=== PATIENT | male | born 1950 | race Hispanic/Latino ===

== ENCOUNTER 2021-06-12 20:45 | Emergency (ER) | payer MEDICARE ==
[2021-06-12 20:56] VITALS: BP 124/73
--- NOTE | 2021-06-12 21:05 | Emergency Department Report ---
ED General Adult HPI - General Chief complaint: Skin Rash Stated complaint: RASH ON GROIN AREA PUI?: No Source: patient Mode of arrival: Ambulatory Limitations: No Limitations - History of Present Illness Initial comments: Patient is a 70-year-old male with a history of chronic recurrent bilateral inguinal hernia who presents to the ED with complaint of acute onset persistent itchy erythematous maculopapular rash on right inguinal area for the last 4 days. Patient states that the itching has worsened in the last 8 hours. Patient denies fever and chills, nausea and vomiting, testicular pain, dysuria, urinary frequency and urgency, low back pain or traumatic injury. MD Complaint: Itchy erythematous painful rash on right inguinal area -: Sudden, days(s) (4) Location: genitals (right inguinal area) Radiation: non-radiation Severity scale (0 -10): 4 Quality: burning, other (itchy) Consistency: constant Improves with: none Worsens with: none Associated Symptoms: denies other symptoms, rash (Itchy erythematous maculopapular rashes on right inguinal area). denies: confusion, chest pain, cough, diaphoresis, headaches, loss of appetite, malaise, seizure, shortness of breath, syncope, other Treatments Prior to Arrival: none - Related Data Previous Rx's Medication Instructions Recorded Last Taken Type Nystatin Oint [Mycostatin Oint] 1 applicatio TP TID #1 tube 06/12/21 Unknown Rx ED Review of Systems ROS: Stated complaint: RASH ON GROIN AREA Other details as noted in HPI Constitutional: denies: chills, fever Eyes: denies: eye pain, eye discharge, vision change ENT: denies: ear pain, throat pain Respiratory: denies: cough, shortness of breath, wheezing Cardiovascular: denies: chest pain, palpitations Endocrine: no symptoms reported Gastrointestinal: denies: abdominal pain, nausea, diarrhea Genitourinary: denies: urgency, dysuria Musculoskeletal: denies: back pain, joint swelling, arthralgia Skin: rash (Diffuse erythematous maculopapular itchy rash in the right inguinal area), change in color, pruritus. denies: lesions Neurological: denies: headache, weakness, paresthesias Psychiatric: denies: anxiety, depression Hematological/Lymphatic: denies: easy bleeding, easy bruising ED Past Medical Hx - Past Medical History Previous Medical History?: Yes Additional medical history: CARDIAC ARRTHY. SCROTAL HERNIA - Surgical History Past Surgical History?: Yes Additional Surgical History: ABDOMINAL - Social History Smoking Status: Never Smoker Substance Use Type: None - Medications Home Medications: Home Medications Medication Instructions Recorded Confirmed Last Taken Type Nystatin Oint [Mycostatin Oint] 1 applicatio TP TID #1 tube 06/12/21 Unknown Rx ED Physical Exam - General Limitations: No Limitations General appearance: alert, in no apparent distress - Head Head exam: Present: atraumatic, normocephalic, normal inspection - Eye Eye exam: Present: normal appearance, PERRL, EOMI Pupils: Present: normal accommodation - ENT ENT exam: Present: normal exam, normal orophraynx, mucous membranes moist, TM's normal bilaterally, normal external ear exam - Neck Neck exam: Present: normal inspection, full ROM - Respiratory Respiratory exam: Present: normal lung sounds bilaterally. Absent: respiratory distress, wheezes, rales, rhonchi, chest wall tenderness, accessory muscle use, decreased breath sounds - Cardiovascular Cardiovascular Exam: Present: normal rhythm, tachycardia, normal heart sounds. Absent: systolic murmur, diastolic murmur, rubs, gallop - GI/Abdominal GI/Abdominal exam: Present: soft, normal bowel sounds. Absent: tenderness, guarding, rebound, hyperactive bowel sounds, hypoactive bowel sounds, organomegaly - exam: Present: scrotal swelling (Large bilateral nontender scrotal and inguin al hernias), other (Erythematous maculopapular rashes on right inguinal area). 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 Absent: tenderness, CVA tenderness (R), CVA tenderness (L), muscle spasm, paraspinal tenderness, vertebral tenderness - Neurological Exam Neurological exam: Present: alert, oriented X3, CN II-XII intact, normal gait, reflexes normal - Psychiatric Psychiatric exam: Present: normal affect, normal mood - Skin Skin exam: Present: warm, dry, intact, normal color, rash (Erythematous maculopapular rashes on right inguinal area), erythema ED Course Vital Signs 06/12/21 06/12/21 06/12/21 20:49 21:01 21:17 Temperature 97.6 F Pulse Rate 113 H 100 H 94 H Respiratory 18 97 H Rate Blood Pressure 124/73 O2 Sat by Pulse 98 Oximetry ED Medical Decision Making - Medical Decision Making This is a 70-year-old male with a history of chronic recurrent bilateral inguinal hernia who presents to the ED with complaint of acute onset persistent itchy erythematous maculopapular rash on right inguinal area for the last 4 days. Patient states that the itching has worsened in the last 8 hours. In the ED, patient is alert and oriented x3 and is not in any distress. Patient is however anxious and tachycardic in triage but afebrile. Based on the history and physical exam findings, the patient's itchy rash is in the right inguinal area is consistent with tinea cruris. Patient was therefore discharged home on antifungal ointment prescription and advised to follow-up with his primary care physician in 7 to 10 days for reevaluation or return to the ED immediately if symptoms get worse. - Differential Diagnosis Tinea cruris; cellulitis; allergic reaction Critical care attestation.: If time is entered above; I have spent that time in minutes in the direct care of this critically ill patient, excluding procedure time. ED Disposition Clinical Impression: Tinea cruris, Itching with irritation Inguinal hernia recurrent bilateral Qualifiers: Obstruction and gangrene presence: without obstruction or gangrene Qualified Code(s): K40.21 - Bilateral inguinal hernia, without obstruction or gangrene, recurrent Disposition: 01 HOME / SELF CARE / HOMELESS Is pt being admited?: No Does the pt Need Aspirin: No Condition: Stable Instructions: Inguinal Hernia, Adult, [id number], Jock Itch, [id number] Additional Instructions: Apply the medication to the affected area as advised, drink plenty fluids, follow-up with your primary care physician and the general surgeon as advised. Return to the ED immediately if symptoms get worse. Prescriptions: Nystatin Oint [Mycostatin Oint] 1 applicatio TP TID #1 tube Referrals: [facility] [Provider Group] - 3-5 Days MARCE YOO MD [Staff Physician] - 7-10 days Time of Disposition: 21:07 Print Language: CROATIAN
== END 2021-06-12 21:19 | disposition home or self-care (01) ==
LOC: ED 20:45
DX: B35.6 Tinea cruris (principal); K40.21 Bilateral inguinal hernia, without obstruction or gangrene, recurrent; Z79.899 Other long term (current) drug therapy
CPT/HCPCS: 99282

== ENCOUNTER 2021-11-03 10:26 | Emergency (ER) | payer MEDICARE ==
--- NOTE | 2021-11-03 15:01 | Event Note ---
ED Screening Note ED Screening Note: Patient came in an ambulance stating that he had not peed for several days and that night he went to an [facility] and was supposed to follow-up with urology but did not. When I interviewed him he said that he came because his neck was sore. Then he stated that it was better now. 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 Then the patient started talking abou the [employer] and pointed to his ears and said that they were telling him things. He reports he is since the 80s. And he states that he lives alone. He will not divulge much information beyond that. [facility] a [facility] ar[facility] on. No [facility] armband. I have asked the nurse to place an armband. Patient seems to be having auditory hallucinations. Denies SI HI This initial assessment/diagnostic orders/clinical plan/treatment(s) is/are subject to change based on patients health status, clinical progression and re- assessment by fellow clinical providers in the ED. Further treatment and workup at subsequent clinical providers discretion. Patient/guardian urged not to elope from the ED as their condition may be serious if not clinically assessed and managed. Initial orders include: tanvi
[2021-11-03 22:33] VITALS: BP 122/82
[2021-11-04] MEDS ORDERED: IBUPROFEN 200 MG TAB PO ONE (01:42)
--- NOTE | 2021-11-04 01:43 | Emergency Department Report ---
ED General Adult HPI - General Chief complaint: Pain General Stated complaint: My neck is hurting me. My testicle is swollen for years Time Seen by Provider: 11/03/21 22:32 Source: patient, EMS ( EMS documentation not available at time of chart dictation ), RN notes reviewed Mode of arrival: Stretcher Limitations: No Limitations - History of Present Illness Initial comments: This patient is a 70-year-old gentleman who appears to be undomiciled, who presents to the ER today with a primary complaint of nontraumatic paracervical neck pain. Denies chest pain, abdominal pain, shortness of breath, headache, homicidality, suicidality, hallucinations and overdose. He denies dysuria. He is able to urinate. He also reports chronic swelling in his left testicle for 5 or 6 years. He states "it has been there for years, there is nothing you can do about it." -: year(s) Location: neck (Paracervical), left (Left testicle is swollen) Radiation: non-radiation Severity scale (0 -10): 3 Consistency: constant Improves with: none Worsens with: none Associated Symptoms: denies other symptoms - Related Data Previous Rx's Medication Instructions Recorded Last Taken Type Nystatin Oint [Mycostatin Oint] 1 applicatio TP TID #1 tube 06/12/21 Unknown Rx Allergies Allergy/AdvReac Type Severity Reaction Status Date / Time No Known Allergies Allergy Verified 11/03/21 10:31 ED Review of Systems ROS: Stated complaint: urinary retention Other details as noted in HPI Constitutional: denies: fever Eyes: denies: eye discharge ENT: denies: epistaxis Respiratory: denies: cough Cardiovascular: denies: chest pain Gastrointestinal: denies: abdominal pain Genitourinary: as per HPI, testicular mass. denies: urgency, dysuria, testicular pain Musculoskeletal: myalgia Psychiatric: denies: auditory hallucinations, visual hallucinations, homicidal thoughts, suicidal thoughts ED Past Medical Hx - Past Medical History Additional medical history: CARDIAC ARRTHY. SCROTAL HERNIA - Surgical History Additional Surgical History: ABDOMINAL - Social History Smoking Status: Never Smoker Substance Use Type: None - Medications Home Medications: Home Medications Medication Instructions Recorded Confirmed Last Taken Type Nystatin Oint [Mycostatin Oint] 1 applicatio TP TID #1 tube 06/12/21 Unknown Rx ED Physical Exam - General Limitations: No Limitations General appearance: alert, in no apparent distress - Head Head exam: Present: atraumatic, normocephalic - Eye Eye exam: Present: normal appearance, EOMI. Absent: nystagmus - ENT ENT exam: Present: normal exam, normal orophraynx, mucous membranes moist, normal external ear exam - Neck Neck exam: Present: normal inspection, full ROM. Absent: tenderness, meningismus - Respiratory Respiratory exam: Present: normal lung sounds bilaterally. Absent: respiratory distress, wheezes, rales, rhonchi, stridor, decreased breath sounds - Cardiovascular Cardiovascular Exam: Present: regular rate, normal rhythm, normal heart sounds. Absent: bradycardia, tachycardia, irregular rhythm, systolic murmur, diastolic murmur, rubs, gallop - GI/Abdominal GI/Abdominal exam: Present: soft, normal bowel sounds, hernia (There is a chronic left-sided scrotal hernia noted). Absent: distended, tenderness, guarding, rebound, rigid - Rectal Rectal exam: Present: deferred - exam: Absent: normal inspection (Chronic swelling noted to the left testicle. The testicles are nontender.) External exam: Present: other (The phallus is nontender. The right testicle is nontender) - Extremities Exam Extremities exam: Present: normal inspection, full ROM, other (2+ pulses noted in the bilateral upper and lower extremities. There is no palpable cord. negative Homans sign. Muscular compartments are soft. The pelvis is stable.). Absent: pedal edema, calf tenderness - Back Exam Back exam: Present: normal inspection, full ROM. Absent: tenderness, CVA tenderness (R), CVA tenderness (L), paraspinal tenderness, vertebral tenderness - Neurological Exam Neurological exam: Present: alert, oriented X3, other (No facial droop. Tongue midline. Extraocular movements intact bilaterally. Facial sensation intact to light touch in V1, V2, V3 distribution bilaterally. 5 and a 5 strength in 4 extremities. Sensation intact to light touch in 4 extremities.). Absent: motor sensory deficit - Psychiatric Psychiatric exam: Present: normal affect, normal mood. Absent: homicidal ideation, suicidal ideation - Skin Skin exam: Present: warm, dry, intact, normal color. Absent: rash ED Course Vital Signs 11/03/21 11/03/21 10:30 22:15 Temperature 98.0 F 98.4 F Pulse Rate 98 H 96 H Respiratory 16 18 Rate Blood Pressure 138/98 122/82 [Left] O2 Sat by Pulse 97 97 Oximetry ED Medical Decision Making - Lab Data Vital Signs 11/03/21 11/03/21 10:30 22:15 Temperature 98.0 F 98.4 F Pulse Rate 98 H 96 H Respiratory 16 18 Rate Blood Pressure 138/98 122/82 [Left] O2 Sat by Pulse 97 97 Oximetry - Medical Decision Making Differential diagnosis, including but not limited to: Encounter for medical screening examination, encounter for behavioral health screening examination, chronic scrotal hernia, and neck pain Assessment and plan: 70-year-old gentleman, who is afebrile, with reassuring vital signs and clinically sober with a GCS of 15, presenting with nonspecific neck pain. His physical exam in the head and neck is unremarkable and benign. Left-sided testicular hernia has been present for years and is nontender. He is urinating. His physical examination is otherwise benign and unremarkable. Nurse practitioner screening note is reviewed and appreciated. On my assessment, the patient is awake, alert, oriented, sober and of sound mind. He is not homicidal or suicidal, he knows the date, year, month, location The presence of [facility] is. He does not demonstrate any behavior or make any comments that would require 1013 involuntary confinement at this time. He may take Tylenol and Motrin as needed for physical pain. Outpatient follow-up with primary care and behavioral health. Observed in this ER for hours without clinical decompensation Critical care attestation.: If time is entered above; I have spent that time in minutes in the direct care of this critically ill patient, excluding procedure time. ED Disposition Clinical Impression: Neck pain, Scrotal hernia, Encounter for medical screening examination, Encounter for behavioral health screening Disposition: 01 HOME / SELF CARE / HOMELESS Is pt being admited?: No Does the pt Need Aspirin: No Condition: Good Additional Instructions: The patient may take [id number] Tylenol or ibuprofen as needed for physical pain. Patient may alternate ice packs and heat packs as needed for physical pain relief. Recommend that patient follow-up with her primary care doctor within the next month. Recommend that patient follow-up with a behavioral health specialist within the next month. Please return to the emergency room right away with new pain, worsened pain, migration of pain, projectile vomiting, change in mental status, confusion, inability tolerate liquid feeds, new, worsened or different symptoms not present on the initial emergency room evaluation Referrals: [facility] [Outside] - 3-5 Days [facility] [Outside] - 3-5 Days
== END 2021-11-04 01:58 | disposition home or self-care (01) ==
LOC: ED 10:26
DX: K40.91 Unilateral inguinal hernia, without obstruction or gangrene, recurrent (principal); M54.2 Cervicalgia; Z00.00 Encounter for general adult medical examination without abnormal findings; Z13.30 Encounter for screening examination for mental health and behavioral disorders, unspecified
CPT/HCPCS: 99283